=== PATIENT | male | born 1960 | race Caucasian/White ===

== ENCOUNTER 2019-02-15 19:00 | Emergency (ER) | payer SELFPAY ==
[~2019-02-15] VITALS: Ht 152.4 cm; Wt 63.3 kg
[2019-02-15 19:12] VITALS: BP 142/65; PULSE 78; RESP 18; Ht 152.4 cm; Wt 63.3 kg
--- NOTE | 2019-02-15 19:55 | ERD ---
ER Documentation Chief Complaint Chief Complaint forehead staple removal HPI Patient is a 58-year-old male who presents for staple removal. He has had yunier in the forehead for approximately 1 week. The patient has no fevers and no pus from the wound. He is complaining of whole body pain. ROS All systems reviewed and are negative except as per history of present illness. Allergies Allergies: Coded Allergies: No Known Drug Allergies (Verified Allergy, Unknown, 02/15/19) PMhx/Soc Medical and Surgical Hx: pt denies Medical Hx, pt denies Surgical Hx Hx Alcohol Use: Yes Hx Substance Use: No Hx Tobacco Use: Yes Smoking Status: Current every day smoker FmHx Family History: No diabetes Physical Exam Vitals Vital Signs Date Temp Pulse Resp B/P (MAP) Pulse Ox O2 O2 Flow FiO2 Time Delivery Rate 02/15/19 99.0 78 18 142/65 100 19:12 (90) Physical Exam Const: No acute distress Head: Atraumatic Eyes: Normal Conjunctiva ENT: Normal External Ears, Nose and Mouth. Neck: Full range of motion. No meningismus. Resp: Clear to auscultation bilaterally Cardio: Regular rate and rhythm, no murmurs Abd: Soft, non tender, non distended. Normal bowel sounds Skin: Incision to the upper mid forehead is clean, dry, and intact with 3 yunier Back: No midline or flank tenderness Ext: No cyanosis, or edema Neur: Awake and alert Psych: Normal Mood and Affect Procedures/MDM Stable removal by me: 3 yunier were removed by myself without difficulty with a staple removal. Wound shows no evidence of infection, foreign body, neurologic injury, vascular injury, open joint or tendon laceration. Patient to follow up PRN. Departure Diagnosis: Primary Impression: Encounter for removal of yunier Condition: Fair Patient Instructions: Staple Removal, No Complication [facility] Usted se carvalho hecho un examen mdico de control que le indica que no est en timoteo condicin que requiera tratamiento urgente en el Departamento de Emergencia. Un estudio ms profundo y el tratamiento de cage condicin pueden esperar sin ningn riesgo hasta que usted sea atendida/o en el consultorio de cage mdico o timoteo clnica. Es responsabilidad suya arreglar timoteo claudia para el seguimiento del ivy. MANEJO DE CONDICIONES NO URGENTES EN EL FUTURO 1) Si usted tiene un mdico de atencin primaria: Usted debera llamar a cage mdico de atencin primaria antes de venir al departamento de emergencia. Despus de las horas de consultorio, cage doctor o cage asociado/a est disponible por telfono. El mdico o enfermero de jenn en el servicio telefnico puede asesorarle por arabella medio para atender el problema, o ivy contrario se puede programar timoteo claudia. 2) Si usted no tiene un mdico de atencin primaria: Llame al mdico o clnica de referencia que aparece abajo betty las horas de consultorio para hacer timoteo claudia para que le vean. CLINICAS: [facility] [phone] [facility] [phone] [facility] [facility] [phone] [facility]. [place] [phone] [facility]. [facility] [phone] [id number] [facility]. [phone] Additional Instructions: Llame al doctor nombrado abajo (Referral Sources) MAANA y tammi timoteo CLAUDIA PARA DENTRO DE TIMOTEO SEMANA. Dgale a la secretaria que nosotros le instruimos hacer esta claudia.Avise o llame si cage condicin se empeora antes de la claudia. IRLANDA ERNANDEZ MD February 15, 2019 19:55
== END 2019-02-15 20:01 | disposition home or self-care (01) ==
LOC: FTE 19:00
DX: Z48.02 Encounter for removal of sutures (principal)
CPT/HCPCS: 99281